=== PATIENT | female | born 1955 | race Caucasian/White ===

== ENCOUNTER 2018-03-20 11:26 | Outpatient (CLI) | payer OTHER ==
[2018-03-20 12:07] LABS: Estimated GFR-MDRD - POC Greater than 90
--- NOTE | 2018-03-20 14:14 | MRI ---
BRAIN MRI WITH AND WITHOUT CONTRAST: INDICATIONS: Progressive, chronic headache. COMPARISON: 09/28/2015 and 03/26/2013 FINDINGS: Persistent focus of signal alteration with susceptibility is present at the cortical/subcortical aspe ct of the lateral right frontal lobe, grossly stable, consistent with stable cavernous malformation/d evelopmental venous anomaly. No new signal abnormality of significance is seen within the brain parenchyma. There is no acute ter ritorial infarction, mass effect, or midline shift. The ventricular system is appropriate in volume. Evaluation is otherwise stable. 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 POS: [facility]
== END 2018-03-20 11:27 | disposition home or self-care (01) ==
LOC: SCSMRI 11:26
PROVIDERS: ATTEND Neurological Surgery
DX: Q28.2 Arteriovenous malformation of cerebral vessels (principal)
CPT/HCPCS: 70553; 82565